=== PATIENT | male | born 1995 | race Caucasian/White ===

== ENCOUNTER → 2019-07-10 | Outpatient (CLI) | payer BC | LOC: YCFC.O 13:29 | PROVIDERS: ATTEND Nurse Practitioner | DX: R42 Dizziness and giddiness (principal) ==

== ENCOUNTER → 2019-08-28 | Outpatient (CLI) | payer BC ==
--- NOTE | 2019-08-28 11:06 | RAD ---
EXAM DESCRIPTION: Ankle,Left 3 Views CLINICAL HISTORY: ANKLE PAIN COMPARISON: Left foot dated 04 May 2010 TECHNIQUE: 3 views left FINDINGS: The exam reveals a talocalcaneal and talonavicular arthrodesis. Degenerative changes are observed in the talocalcaneal articulation more pronounced medially. Degenerative changes are observed in the medial aspect of the ankle. Exam does reveal fracturing of one of the arthrodesis valeriano and fixation of prior injury/osteotomy of the fifth metatarsal is observed proximally. A joint effusion is evident. 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 Fracturing of one of the arthrodesis valeriano is observed. Electronically signed by: Andrade Santana MD 08/28/2019 11:05 AM [facility]
--- NOTE | 2019-08-28 11:10 | RAD ---
EXAM DESCRIPTION: Foot,Left 3 Views CLINICAL HISTORY: FOOT PAIN COMPARISON: 04 May 2010 TECHNIQUE: 3 views left FINDINGS: The exam reveals evidence of arthrodesis of the talocalcaneal joint and the talonavicular and calcaneal cuboid articulations. Degenerative changes are observed in the talotibial articulation. Degenerative changes are observed medially and anteriorly in the joint. Prior screw fixation of an injury of the proximal fifth metatarsal is observed. No acute fracturing is detected. 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 Fracturing of the talonavicular staple is noted. Electronically signed by: Andrade Santana MD 08/28/2019 11:08 AM [facility]
== END ==
LOC: RAD 09:34
PROVIDERS: ATTEND Orthopaedic Surgery
DX: M19.072 Primary osteoarthritis, left ankle and foot (principal); T84.213A Breakdown (mechanical) of internal fixation device of bones of foot and toes, initial encounter; Z98.1 Arthrodesis status

== ENCOUNTER 2019-09-21 15:12 | Emergency (ER) | payer BC ==
[2019-09-21] MEDS ORDERED: ONDANSETRON INJ 4 MG/2 ML VIAL IV ONE (15:36)
[2019-09-21] MEDS ORDERED: SODIUM CHLORIDE 0.9% 1000ML 1,000 ML IVS ONE (15:36)
[2019-09-21] MEDS ORDERED: SODIUM CHLORIDE 0.9% (FLUSH) 10 ML SYG IV PRN (15:36)
--- NOTE | 2019-09-21 15:37 | ED.PDOC ---
History of Present Illness - General Chief Complaint: General Stated Complaint: CONTINUED FEVER FOR 4 DAYS Time Seen by Provider: 09/21/19 15:35 Source: patient - History of Present Illness Initial Comments: 24 yo male with PMH of asthma who presents with cc of flu-like illness. Onset 3 days ago with cough, congestion, headache, fevers. Reports onset of nausea, vomiting, and diarrhea since 2 days ago. Also reports sore throat, malaise, fatigue, body aches. Cough is frequent and mucous production. Vomited once today - mostly mucous. Diarrhea 2-3 times per day, watery. Was diagnosed with Flu B at a [place] urgent care this morning but states has been on Tamiflu since 2 days ago without much relief. Reports some dsypnea and wheezing but has run out of home albuterol. Girlfriend recently ill with flu as well. Denies any abd pain, urinary sx's. Never smoker. Allergies/Adverse Reactions: Allergies NO KNOWN ALLERGY Allergy (Verified 09/19/17 09:27) Home Medications: Ambulatory Orders Azithromycin Tab [Zithromax] 250 mg PO QD #4 tab 09/19/17 Ibuprofen 800 mg PO Q8HR PRN #30 tab 09/19/17 Ondansetron [Zofran Odt] 8 mg PO TID PRN #20 tab 09/19/17 Albuterol Sulfate Nebs [Proventil Nebs] 2.5 mg INH Q4H PRN 30 Days #10 vial 09/21/19 Ondansetron Odt [Zofran ODT] 8 mg PO Q8H PRN 5 Days #10 tab 09/21/19 predniSONE 60 mg PO DAILY #15 tab 09/21/19 Review of Systems - Review of Systems Review of Systems: 09/21/19 17:08 as per HPI All other Systems: Reviewed and Negative Past Medical History (General) - Patient Medical History Hx Asthma: Yes - Social History Hx Tobacco Use: No Family Medical History - Family History Father Family History: Unknown Living Status: Still Living Hx Family Diabetes: Yes Physical Exam - Physical Exam General Appearance: Alert, No apparent distress Eye Exam: bilateral normal Ears, Nose, Throat: hearing grossly normal, nasal congestion, pharyngeal erythema Neck: non-tender, full range of motion, supple, normal inspection Respiratory: no respiratory distress, no accessory muscle use, wheezing - End- exp wheezing throughout, other - no rales or rhonchi Cardiovascular/Chest: normal peripheral pulses, regular rate, rhythm, no edema, no JVD, no murmur Peripheral Pulses: radial,right: 2+, radial,left: 2+ Gastrointestinal/Abdominal: normal bowel sounds, non tender, soft, no organomegaly Back Exam: normal inspection, no CVA tenderness, no vertebral tenderness Extremity: normal range of motion, non-tender, normal inspection, no pedal edema, no calf tenderness 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 CXR is clear per my read. Strep is negative. Repeat auscultation shows resolved wheezes throughout. -Will send home with Rx's of prednisone 60 mg daily x5 days & albuterol nebs PRN for asthma, Zofran PRN nausea. Return warnings discussed. Nick Villalba MD Billing #[id number] - Results/Orders Results/Orders: 09/21/19 15:36 IV Care:Saline Lock per Protoc QSHIFT Sodium Chloride 0.9% (Flush) [Saline Flush Syringe] 10 ml IV PRN PRN 09/21/19 17:15 STREP A SCREEN CULTURE Stat Laboratory Results - last 24 hr 09/21/19 09/21/19 09/21/19 15:42 15:42 15:59 WBC 12.3 H RBC 4.69 L Hgb 14.2 Hct 41.5 L MCV 88.5 MCH 30.2 MCHC 34.1 RDW 12.6 Plt Count 189 MPV 8.6 Absolute Neuts (auto) 10.40 H Absolute Lymphs (auto) 0.90 L Absolute Monos (auto) 0.80 Absolute Eos (auto) 0.20 Absolute Basos (auto) 0.00 Neutrophils % 84.0 H Lymphocytes % 7.6 L Monocytes % 6.6 Eosinophils % 1.6 Basophils % 0.2 Sodium 139 Potassium 3.7 Chloride 103 Carbon Dioxide 24 Anion Gap 15.7 BUN 8 Creatinine 0.74 BUN/Creatinine Ratio 10.8 Random Glucose 96 Serum Osmolality 275.7 Calcium 8.7 Total Bilirubin 0.7 Direct Bilirubin 0.2 Indirect Bilirubin 0.5 AST 18 ALT 16 Alkaline Phosphatase 59 Creatine Kinase 80 Serum Total Protein 6.7 Albumin 4.0 Lipase 30 Urine Color Yellow Urine Appearance Clear Urine pH 7.0 Ur Specific [place] 1.010 Urine Protein Negative Urine Glucose (UA) Negative Urine Ketones Negative Urine Blood Negative Urine Nitrite Negative Urine Bilirubin Negative Urine Urobilinogen 0.2 Ur Leukocyte Esterase Negative Urine RBC 0-1 Urine WBC 1-3 Ur Epithelial Cells 0 Urine Bacteria 0 Group A Strep Rapid 09/21/19 17:15 WBC RBC Hgb Hct MCV MCH MCHC RDW Plt Count MPV Absolute Neuts (auto) Absolute Lymphs (auto) Absolute Monos (auto) Absolute Eos (auto) Absolute Basos (auto) Neutrophils % Lymphocytes % Monocytes % Eosinophils % Basophils % Sodium Potassium Chloride Carbon Dioxide Anion Gap BUN Creatinine BUN/Creatinine Ratio Random Glucose Serum Osmolality Calcium Total Bilirubin Direct Bilirubin Indirect Bilirubin AST ALT Alkaline Phosphatase Creatine Kinase Serum Total Protein Albumin Lipase Urine Color Urine Appearance Urine pH Ur Specific [place] Urine Protein Urine Glucose (UA) Urine Ketones Urine Blood Urine Nitrite Urine Bilirubin Urine Urobilinogen Ur Leukocyte Esterase Urine RBC Urine WBC Ur Epithelial Cells Urine Bacteria Group A Strep Rapid Negative Departure - Departure Clinical Impression: Influenza, Gastroenteritis Asthma exacerbation Qualifiers: Asthma severity: unspecified severity Asthma persistence: intermittent Qualified Code(s): J45.21 - Mild intermittent asthma with (acute) exacerbation Time of Disposition: 18:01 Disposition: Discharge to Home or Self Care Condition: Fair Departure Forms: ED Discharge - Pt. Copy, Patient Portal Self Enrollment Instructions: Flu, Adult (DC), Asthma, Adult (DC) Diet: resume usual diet Referrals: Andrade Antunez III, MD [Primary Care Provider] - 1-2 Weeks Prescriptions: Albuterol Sulfate Nebs [Proventil Nebs] 2.5 mg INH Q4H PRN 30 Days #10 vial PRN Reason: Wheezing Ondansetron Odt [Zofran ODT] 8 mg PO Q8H PRN 5 Days #10 tab PRN Reason: Nausea predniSONE 60 mg PO DAILY #15 tab Home Medications: Ambulatory Orders Azithromycin Tab [Zithromax] 250 mg PO QD #4 tab 09/19/17 Ibuprofen 800 mg PO Q8HR PRN #30 tab 09/19/17 Ondansetron [Zofran Odt] 8 mg PO TID PRN #20 tab 09/19/17 Albuterol Sulfate Nebs [Proventil Nebs] 2.5 mg INH Q4H PRN 30 Days #10 vial 09/21/19 Ondansetron Odt [Zofran ODT] 8 mg PO Q8H PRN 5 Days #10 tab 09/21/19 predniSONE 60 mg PO DAILY #15 tab 09/21/19 Additional Instructions: Take the prednisone as directed. Use your albuterol inhaler once every 4 hours for the next 24 hours and then you may use every 4 hours as needed for wheezing. Take the Zofran as directed for nausea. Remain well-hydrated and advance your diet as tolerated. Follow up closely with your primary care doctor in 1-2 weeks. Avoid any potential exacerbants of your asthma as well such as smoke, vigorous activity, cold weather, etc...
[2019-09-21 15:43] VITALS: TEMP 99.2
[2019-09-21] MEDS ORDERED: methylPREDNISolone SODIUM SUC 125 MG/2 ML VIAL IV ONE (17:05)
[2019-09-21] MEDS ORDERED: IPRATROPIUM/ALBUTEROL 3 ML VIAL NEB ONE (17:05)
[2019-09-21 17:24] VITALS: O2SAT 96
--- NOTE | 2019-09-21 17:49 | RAD ---
EXAM DESCRIPTION: XR Chest, 2 Views CLINICAL HISTORY: 24 years Male cough, dyspnea, hx of PNA TECHNIQUE: Two views of the chest. COMPARISON: 09/19/2017 FINDINGS: The lungs are clear without focal consolidation, effusion, or pneumothorax. The cardiomediastinal silhouette and central pulmonary vasculature are normal. No acute osseous abnormalities. IMPRESSION: No acute cardiopulmonary abnormalities. Electronically signed by: Di Roche MD 09/21/2019 5:48 PM [facility] [place]
[2019-09-21 18:19] VITALS: BP 140/66
== END 2019-09-21 18:17 | disposition home or self-care (01) ==
LOC: ER 15:12
DX: J10.1 Influenza due to other identified influenza virus with other respiratory manifestations (principal); K52.9 Noninfective gastroenteritis and colitis, unspecified; J45.21 Mild intermittent asthma with (acute) exacerbation; Z79.899 Other long term (current) drug therapy
CPT/HCPCS: 36415; 71046; 80048; 80076; 81001; 82550; 83690; 85025; 87070; 87880; 94640; J2405; J2930; J7030; J7620